=== PATIENT | female | born 1955 | race African-American/Black ===

== ENCOUNTER 2016-12-19 23:03 | Inpatient (IN) | payer OTHER ==
[~2016-12-19] VITALS: Ht 172.7 cm; Wt 106.9 kg
--- NOTE | ~2016-12-19 | EKG ---
[facility] [place] [address] ELECTROCARDIOGRAM REPORT Name: GUILLAUME NIEVES Room #: 456-P ADM IN M.R.#: [id number] Admission: 12/20/16 Attend Phys: Ronni Ye MD Discharge: Date of : 59 Report #: [id number] THIS REPORT FOR: //name// [facility] ED Test Date: 2016-12-19 Test Time: 23:21:26 Pat Name: GUILLAUME SORIA Department: Room: [facility] Gender: F Intensivist: QUINN : 1955 Requested By: Ayan Dixon Order Number: [id number] MD: Wm Ulloa Measurements Intervals [place] Rate: 104 P: 82 OR: 173 QRS: -13 QRSD: 86 T: 71 QT: 357 QTc: 470 Interpretive Statements Sinus tachycardia Biatrial enlargement RSR' in V1 or V2, right VCD Baseline wander in lead(s) V6 Compared to ECG 05/17/2016 03:49:59 No significant change was found Electronically Signed On 12-20-2016 7:25:05 CDT by Wm Ulloa [email or web address] <ELECTRONICALLY SIGNED> By: Wm Ulloa MD, [facility] 12/20/16 0725 2321 2321 Wm Ulloa MD, [facility] /EPI
--- NOTE | ~2016-12-19 | EKG ---
[place] [address] [facility] [place] [address] ELECTROCARDIOGRAM REPORT Name: GUILLAUME NIEVES Room #: 456-P ADM IN M.R.#: [id number] Admission: 12/20/16 Attend Phys: Gustavo Wakefield DO Discharge: Date of : 59 Report #: [id number] THIS REPORT FOR: //name// [facility] Test Date: 2016-12-25 Test Time: 04:35:55 Pat Name: GUILLAUME SORIA Department: Room: 456 Gender: F Die Presser: jin gonzalez RN : 1955 Requested By: Katharine Gee Order Number: [id number] MD: Wm Ulloa Measurements Intervals [place] Rate: 81 P: 78 [place]: 124 QRS: 16 QRSD: 84 T: 56 QT: 411 QTc: 477 Interpretive Statements Sinus rhythm Right atrial enlargement Compared to ECG 12/20/2016 01:14:28 No significant change was found Electronically Signed On 12-26-2016 8:32:02 CDT by Wm Ulloa [email or web address] <ELECTRONICALLY SIGNED> By: Wm Ulloa MD, [facility] 12/26/16 0832 0435 0435 Wm Ulloa MD, [facility] /EPI
--- NOTE | ~2016-12-19 | HC ---
[facility] [address] CONSULTATION Name: GUILLAUME NIEVES Room #: 456-P ADM IN M.R.#: [id number] Admission: 12/20/16 Attend Phys: Gustavo Wakefield DO Discharge: Date of : 59 Report #: [id number] THIS REPORT FOR: //name// CC: MARIBETH physician/PCP Bryon Ye DATE OF SERVICE: 12/20/2016 REASON FOR CONSULTATION: Respiratory failure. IMPRESSION: 1. Mfbib-sd-nklrpjx hypoxic respiratory failure. 2. Pulmonary infiltrates. 3. Exacerbation of asthma. PLAN: Corticosteroids, aerosol treatments, BiPAP. Considered going to unit, but stabilized. D-dimer was done. We will follow closely with you. Echo had been done earlier this year that did not show pulmonary hypertension. HISTORY OF PRESENT ILLNESS: This is a very pleasant 61-year-old female. When I saw her, was in distress. She tried to go to the restroom and required be placed on BiPAP. The patient with headache, cough, discolored sputum for 3-4 days prior to admission. ALLERGIES: PENICILLIN. HOME MEDICATIONS: Include albuterol and Breo. FAMILY HISTORY: Negative for significant pulmonary disease by report. SOCIAL HISTORY: Positive tobacco in past. Negative ETOH. No drugs of abuse. ALLERGIES: PENICILLIN with hives and rash. REVIEW OF SYSTEMS: Shortness of breath. No definite chest pain, no palpitations. Positive sputum production. PHYSICAL EXAMINATION: HEENT: Eyes negative icterus. BiPAP on. LUNGS: Wheeze bilaterally. HEART: Regular. ABDOMEN: Bowel sounds present. EXTREMITIES: Showed no calf tenderness, moved all extremities. LABORATORY DATA: [facility] [address] [place] [address] CONSULTATION Name: GUILLAUME NIEVES Room #: 456-P ADM IN M.R.#: [id number] Admission: 12/20/16 Attend Phys: Gustavo Wakefield DO Discharge: Date of : 59 Report #: [id number] D-dimer 0.3, creatinine 1.2, glucose 249. White count 12.2, hemoglobin 13.4, platelets 188. ProBNP 255, mag 2.1, pH 7.396, pCO2 of 44, pO2 of 493, carboxyhemoglobin 0.6 when she came in. <ELECTRONICALLY SIGNED> By: Cyndi Montano MD 12/22/161906 193 07 Cyndi Montano MD /nt
--- NOTE | ~2016-12-19 | EKG ---
[place] [address] [facility] [place] [address] ELECTROCARDIOGRAM REPORT Name: GUILLAUME NIEVES Room #: 456-P ADM IN M.R.#: [id number] Admission: 12/20/16 Attend Phys: Ronni Ye MD Discharge: Date of : 59 Report #: [id number] THIS REPORT FOR: //name// [facility] ED Test Date: 2016-12-20 Test Time: 01:14:28 Pat Name: GUILLAUME SORIA Department: Room: 456 Gender: F Welt Maker: QUINN : 1955 Requested By: Ronni Ye Order Number: [id number] MD: Wm Ulloa Measurements Intervals [place] Rate: 97 P: 82 [place]: 177 QRS: 12 QRSD: 90 T: 60 QT: 387 QTc: 492 Interpretive Statements Sinus rhythm Biatrial enlargement RSR' in V1 or V2, right VCD Borderline prolonged QT interval Compared to ECG 05/17/2016 03:49:59 Sinus tachycardia no longer present Electronically Signed On 12-20-2016 7:26:50 CDT by Wm Ulloa [email or web address] <ELECTRONICALLY SIGNED> By: Wm Ulloa MD, [facility] 12/20/16 0726 0114 0114 Wm Ulloa MD, [facility] /EPI
--- NOTE | ~2016-12-19 | EKG ---
[place] [address] [facility] [place] [address] ELECTROCARDIOGRAM REPORT Name: GUILLAUME NIEVES Room #: 456-P ADM IN M.R.#: [id number] Admission: 12/20/16 Attend Phys: Gustavo Wakefield DO Discharge: Date of : 59 Report #: [id number] THIS REPORT FOR: //name// [facility] Test Date: 2016-12-25 Test Time: 03:49:27 Pat Name: GUILLAUME SORIA Department: Room: 456 Gender: F Outside Sales Advertising Executive: jin gonzalez RN : 1955 Requested By: Katharine Gee Order Number: [id number] MD: Wm Ulloa Measurements Intervals [place] Rate: 90 P: 78 [place]: 127 QRS: 20 QRSD: 82 T: 57 QT: 387 QTc: 474 Interpretive Statements Sinus rhythm Right atrial enlargement Borderline ST elevation, anterior leads Compared to ECG 12/20/2016 01:14:28 No significant change was found Electronically Signed On 12-26-2016 8:31:19 CDT by Wm Ulloa [email or web address] <ELECTRONICALLY SIGNED> By: Wm Ulloa MD, [facility] 12/26/16 0831 0349 0349 Wm Ulloa MD, [facility] /EPI
[~2016-12-19 23:03] MED LIST: KEFLEX500 MG PO; NOHOMEMEDICATIONS; OSELB75 PO; PREDNISONE 10 M10 MG PO; PROAIR HFA8.5 GM INH
[2016-12-19 23:05] VITALS: BP 166/102
[2016-12-19 23:18] LABS: ABSOLUTE NEUTROPHILS 6.4 thou/uL (1.4-8.2); EOSINOPHILS 3.2 % (0.0-3.0); HEMATOCRIT 42.1 % (37.0-47.0); HEMOGLOBIN 14.2 gm/dL (12.0-15.0); LYMPHOCYTES 25.1 % (24.0-44.0); MCHC 33.8 g/dL (28.0-37.0); MCV 79.8 fL (80.0-100.0); PLATELET COUNT 191 thou/uL (150-400); POLYS 60.7 % (36.0-66.0); RBC 5.27 mil/uL (4.20-5.00); WBC 10.5 thou/uL (4.0-11.0)
[2016-12-19 23:20] LABS: MANUAL DIFF NO
[2016-12-19 23:26] LABS: CALCIUM 9.7 mg/dL (8.5-10.1); POTASSIUM 3.8 mmol/L (3.5-5.1)
[2016-12-19] MEDS ORDERED: BREO ELLIPTA 11 EACH INH (23:28)
[2016-12-19 23:55] LABS: ABG SAMPLE TYPE ARTERIAL; BE(vivo) 1.3 mmol/L (-2 to +3); HCO3 26.6 mmol/L (22.0-26.0); LACTATE 1.32 mmol/L (0.5-2.0); O2(CT) 21.1 mL/dL (15.0-23.0); O2Hb 98.4 % (92.0-98.0); PCO2 44.3 mmHg (35.0-45.0); PO2 493.2 mmHg (80.0-100.0); pH 7.396 (7.360-7.450); sO2 99.9 % (92.0-98.0); tCO2 27.9 mmol/L (24.0-30.0)
[2016-12-19 23:56] LABS: FIO2 100 %; STICK SITE L.RADIAL; TIDAL VOLUME 732 ml
[2016-12-20 01:14] VITALS: BP 139/60
[2016-12-20 02:50] LABS: MAGNESIUM 2.1 mg/dL (1.8-2.4); TROPONIN-I < 0.04 ng/mL (<0.04-0.07)
[2016-12-20 03:53] VITALS: BP 170/78
[2016-12-20 07:32] VITALS: BP 189/107
[2016-12-20 11:31] LABS: HEMATOCRIT 41.1 % (37.0-47.0); HEMOGLOBIN 13.4 gm/dL (12.0-15.0); MCH 26.2 pg (26.0-34.0); MCHC 32.6 g/dL (28.0-37.0); MCV 80.4 fL (80.0-100.0); PLATELET COUNT 188 thou/uL (150-400); RBC 5.11 mil/uL (4.20-5.00); RDW 15.2 % (10.5-14.5); WBC 12.2 thou/uL (4.0-11.0)
[2016-12-20 11:32] LABS: MANUAL DIFF YES
[2016-12-20 11:47] LABS: CALCIUM 9.5 mg/dL (8.5-10.1); CREATININE 1.2 mg/dL (0.6-1.0); POTASSIUM 3.9 mmol/L (3.5-5.1)
[2016-12-20 11:48] LABS: ABSOLUTE NEUTROPHILS 11.5 thou/uL (1.4-8.2); PLATELET ESTIMATE NORMAL; TOTAL CELL COUNT 100
[2016-12-20 11:51] LABS: PROTIME 10.5 Seconds (9.3-11.4)
[2016-12-20 11:52] LABS: ALBUMIN 3.4 g/dL (3.4-5.0); TOTAL BILIRUBIN 0.3 mg/dL (<0.1-1.0); TOTAL PROTEIN 8.3 g/dL (6.4-8.2)
[2016-12-20 19:30] VITALS: BP 160/107
[2016-12-20 20:21] VITALS: BP 162/91
[2016-12-21 05:42] VITALS: BP 166/76
[2016-12-21 19:47] VITALS: BP 171/88
[2016-12-22] VITALS (8 sets, daily range): BP systolic 156–198; BP diastolic 57–94
[2016-12-22 03:51] LABS: HEMOGLOBIN 12.7 gm/dL (12.0-15.0); MCH 26.3 pg (26.0-34.0); MCHC 32.6 g/dL (28.0-37.0); MCV 80.7 fL (80.0-100.0); PLATELET COUNT 196 thou/uL (150-400); RBC 4.83 mil/uL (4.20-5.00); RDW 15.2 % (10.5-14.5); WBC 19.8 thou/uL (4.0-11.0)
[2016-12-22 04:05] LABS: CALCIUM 9.5 mg/dL (8.5-10.1); MAGNESIUM 2.1 mg/dL (1.8-2.4); POTASSIUM 4.4 mmol/L (3.5-5.1)
[2016-12-22 04:18] LABS: MANUAL DIFF YES
[2016-12-22 05:49] LABS: ABSOLUTE NEUTROPHILS 17.8 thou/uL (1.4-8.2); ANISOCYTOSIS SLIGHT; TOTAL CELL COUNT 100
[2016-12-23 06:02] VITALS: BP 185/90
[2016-12-23 06:24] LABS: HEMATOCRIT 39.2 % (37.0-47.0); HEMOGLOBIN 12.9 gm/dL (12.0-15.0); MANUAL DIFF YES; MCH 26.3 pg (26.0-34.0); MCHC 32.9 g/dL (28.0-37.0); MCV 79.8 fL (80.0-100.0); PLATELET COUNT 198 thou/uL (150-400); RBC 4.92 mil/uL (4.20-5.00); RDW 15.1 % (10.5-14.5); WBC 17.1 thou/uL (4.0-11.0)
[2016-12-23 06:32] LABS: CALCIUM 9.3 mg/dL (8.5-10.1); CREATININE 0.9 mg/dL (0.6-1.0); POTASSIUM 4.3 mmol/L (3.5-5.1)
[2016-12-23 07:47] VITALS: BP 147/66
[2016-12-23 08:38] LABS: ABSOLUTE NEUTROPHILS 15.4 thou/uL (1.4-8.2); PLATELET ESTIMATE NORMAL; TOTAL CELL COUNT 100
[2016-12-23 11:10] VITALS: BP 185/72
[2016-12-23 15:24] VITALS: BP 176/89
[2016-12-23 19:13] VITALS: BP 176/72
[2016-12-24 04:46] VITALS: BP 188/97
[2016-12-24 05:31] LABS: ABG SAMPLE TYPE ARTERIAL; BE(vivo) 3.2 mmol/L (-2 to +3); HCO3 27.5 mmol/L (22.0-26.0); LACTATE 2.52 mmol/L (0.5-2.0); O2(CT) 19.2 mL/dL (15.0-23.0); PCO2 41.2 mmHg (35.0-45.0); PO2 62.1 mmHg (80.0-100.0); pH 7.443 (7.360-7.450); sO2 92.6 % (92.0-98.0); tCO2 28.8 mmol/L (24.0-30.0)
[2016-12-24 05:32] LABS: ABG COMMENT ROOM AIR; STICK SITE RRA
[2016-12-24 06:19] LABS: ABSOLUTE NEUTROPHILS 13.4 thou/uL (1.4-8.2); BASOPHILS 0.3 % (0.0-2.0); EOSINOPHILS 0.6 % (0.0-3.0); HEMATOCRIT 40.4 % (37.0-47.0); HEMOGLOBIN 13.5 gm/dL (12.0-15.0); LYMPHOCYTES 10.9 % (24.0-44.0); MCH 26.4 pg (26.0-34.0); MCHC 33.4 g/dL (28.0-37.0); MCV 79.2 fL (80.0-100.0); MONOCYTES 5.8 % (1.0-8.0); PLATELET COUNT 212 thou/uL (150-400); POLYS 82.4 % (36.0-66.0); RDW 14.9 % (10.5-14.5); WBC 16.3 thou/uL (4.0-11.0)
[2016-12-24 06:26] LABS: MANUAL DIFF NO
[2016-12-24 06:32] LABS: CALCIUM 9.4 mg/dL (8.5-10.1); CREATININE 1.1 mg/dL (0.6-1.0); POTASSIUM 4.1 mmol/L (3.5-5.1)
[2016-12-24 07:37] VITALS: BP 174/88
[2016-12-24 11:38] VITALS: BP 164/78
[2016-12-24 16:49] VITALS: BP 183/89
[2016-12-24 19:45] VITALS: BP 155/70
[2016-12-25] VITALS (8 sets, daily range): BP systolic 133–198; BP diastolic 59–91
[2016-12-25 04:56] LABS: HEMATOCRIT 42.6 % (37.0-47.0); HEMOGLOBIN 13.8 gm/dL (12.0-15.0); MCHC 32.5 g/dL (28.0-37.0); PLATELET COUNT 229 thou/uL (150-400); RBC 5.33 mil/uL (4.20-5.00); RDW 15.2 % (10.5-14.5); WBC 13.4 thou/uL (4.0-11.0)
[2016-12-25 05:00] LABS: MANUAL DIFF YES
[2016-12-25 05:06] LABS: CALCIUM 9.5 mg/dL (8.5-10.1); POTASSIUM 4.2 mmol/L (3.5-5.1)
[2016-12-25 06:44] LABS: ABSOLUTE NEUTROPHILS 9.2 thou/uL (1.4-8.2); ANISOCYTOSIS 1+; METAMYELOCYTES 3 %; POLYCHROMASIA OCCASIONAL; TOTAL CELL COUNT 100
[2016-12-26 04:55] VITALS: BP 171/83
[2016-12-26 06:53] LABS: HEMATOCRIT 45.1 % (37.0-47.0); HEMOGLOBIN 14.6 gm/dL (12.0-15.0); MCH 25.9 pg (26.0-34.0); MCHC 32.4 g/dL (28.0-37.0); PLATELET COUNT 229 thou/uL (150-400); RBC 5.64 mil/uL (4.20-5.00); RDW 15.2 % (10.5-14.5); WBC 14.1 thou/uL (4.0-11.0)
[2016-12-26 06:54] LABS: CALCIUM 9.6 mg/dL (8.5-10.1); CREATININE 1.1 mg/dL (0.6-1.0); MANUAL DIFF YES; POTASSIUM 4.2 mmol/L (3.5-5.1)
[2016-12-26 07:51] LABS: ABSOLUTE NEUTROPHILS 11.3 thou/uL (1.4-8.2); METAMYELOCYTES 2 %; MYELOCYTES 1 %; TOTAL CELL COUNT 100
[2016-12-26 07:52] LABS: ANISOCYTOSIS SLIGHT
[2016-12-26 08:32] VITALS: BP 162/82
[2016-12-26] MEDS ORDERED: LEVAQUIN 500 M500 M1 PO (15:30)
[2016-12-26] MEDS ORDERED: AMLODIPINE BESY10 MG PO (15:30)
[2016-12-26] MEDS ORDERED: MEDROL DOSPAK21 TA1 PO (15:31)
[2016-12-26 16:05] VITALS: BP 137/76
[2016-12-26 16:06] VITALS: BP 162/82
== END 2016-12-26 17:14 | disposition home or self-care (01) | DRG 189 ==
LOC: ER 23:03 → EROBS 12-20 00:17 → 4W 12-20 00:17 → EROBS 12-20 00:17 → 4W 12-20 01:18
PROVIDERS: Emergency Medicine; Family Medicine; Internal Medicine Pulmonary Disease; Nurse Practitioner; Nurse Practitioner Acute Care
PROC: 5A09457 Assistance with Respiratory Ventilation, 24-96 Consecutive Hours, Continuous Positive Airway Pressure (ICD-10-PCS; principal; 2016-12-21)
DX: J96.21 Acute and chronic respiratory failure with hypoxia (principal); J45.901 Unspecified asthma with (acute) exacerbation; N17.9 Acute kidney failure, unspecified; J20.8 Acute bronchitis due to other specified organisms; G47.33 Obstructive sleep apnea (adult) (pediatric); R73.9 Hyperglycemia, unspecified; J32.9 Chronic sinusitis, unspecified; D72.829 Elevated white blood cell count, unspecified; T38.0X5A Adverse effect of glucocorticoids and synthetic analogues, initial encounter; E66.3 Overweight; F17.210 Nicotine dependence, cigarettes, uncomplicated; Z68.35 Body mass index [BMI] 35.0-35.9, adult; Y92.89 Other specified places as the place of occurrence of the external cause; Z88.0 Allergy status to penicillin
CPT/HCPCS: 10045

== ENCOUNTER 2017-03-31 15:27 | Inpatient (IN) | payer OTHER ==
[~2017-03-31] VITALS: Ht 180.3 cm; Wt 98.4 kg
--- NOTE | ~2017-03-31 | EKG ---
[place] [address] [facility] [address] ELECTROCARDIOGRAM REPORT Name: GUILLAUME NIEVES Room #: 247-P ADM IN M.R.#: [id number] Admission: 03/31/17 Attend Phys: Bryan Rowe MD Discharge: Date of : 59 Report #: [id number] THIS REPORT FOR: //name// [facility] ED Test Date: 2017-03-31 Test Time: 15:38:10 Pat Name: GUILLAUME SORIA Department: Room: [facility] Gender: F Proofer: ALYSHA : 1955 Requested By: Ezekiel Navarro Order Number: [id number] MD: Wm Ulloa Measurements Intervals [place] Rate: 109 P: 77 [place]: 159 QRS: 11 QRSD: 83 T: 63 QT: 365 QTc: 492 Interpretive Statements Sinus tachycardia Right atrial abnormality Borderline prolonged QT interval Compared to ECG 12/25/2016 04:35:55 Heart rate has increased Electronically Signed On 04-02-2017 14:02:06 RN OUTPATIENT SURGERY by Wm Ulloa [email or web address] <ELECTRONICALLY SIGNED> By: Wm Ulloa MD, [facility] 04/02/17 1402 1538 1538 Wm Ulloa MD, [facility] /EPI
--- NOTE | ~2017-03-31 | EKG ---
[place] [address] [address] [facility] [place] [address] ELECTROCARDIOGRAM REPORT Name: GUILLAUME NIEVES Room #: 212- ADM IN M.R.#: [id number] Admission: 03/31/17 Attend Phys: Bryan Rowe MD Discharge: Date of : 59 Report #: [id number] THIS REPORT FOR: //name// [facility] Test Date: 2017-04-04 Test Time: 15:43:04 Pat Name: GUILLAUME SORIA Department: Room: 212 P Gender: F Clinic Coordinator: Crow DELGADILLO : 1955 Requested By: Ignacio Gonzalez Order Number: [id number] MD: Michael Guevara Measurements Intervals [place] Rate: 106 P: 82 [place]: 166 QRS: 12 QRSD: 82 T: 54 QT: 371 QTc: 493 Interpretive Statements Sinus tachycardia Biatrial enlargement Probable left ventricular hypertrophy Borderline prolonged QT interval Compared to ECG 03/31/2017 15:38:10 No significant changes Electronically Signed On 04-04-2017 20:46:52 JAVA SQL DEVELOPER by Michael Guevara [email or web address] <ELECTRONICALLY SIGNED> By: Michael Guevara MD 04/04/17 2046 1543 1543 Michael Guevara MD /EPI
--- NOTE | ~2017-03-31 | HC ---
[facility] [place] [address] [address] [place] [address] CONSULTATION Name: GUILLAUME NIEVES Room #: 212-P [facility] IN M.R.#: [id number] Admission: 03/31/17 Attend Phys: Bryan Rowe MD Discharge: 04/05/17 Date of : 59 Report #: [id number] THIS REPORT FOR: //name// CC: Bryan Cheung DATE OF SERVICE: 03/31/2017 PULMONARY CONSULTATION REFERRING PROVIDER: Bryan Rowe MD No primary care provider ____. REASON FOR CONSULTATION: Status asthmaticus. CHIEF COMPLAINT: Shortness of breath. HISTORY OF PRESENT ILLNESS: Our group was asked to evaluate the patient in consultation while hospitalized at [facility] [place], well known to me from prior hospital stays and office visits. This is a very pleasant 61-year-old woman with very severe persistent asthma that has been difficult to control due to inability to obtain medications at home due to lack of insurance, had been trying to keep on long-acting beta agonist and inhaled steroids in the past, but often runs out of medications and uses only p.r.n. albuterol, recently exposed to grandchildren that were sick, has been having some cough over the last 4 days with green sputum, running fevers high as 102 at home. She states with some chills, dyspnea became more and more severe throughout the week until today. Finally, presented to the Emergency Department in severe respiratory distress, was placed on noninvasive positive pressure ventilation with BiPAP and given systemic steroids and antibiotics. Notes more comfortable on the BiPAP, still having some chest tightness and shortness of breath, currently is in moderate respiratory distress despite use of BiPAP. ALLERGIES: INCLUDE PENICILLIN. PAST MEDICAL HISTORY: 1. Severe persistent asthma. 2. Ongoing tobacco use. 3. Obesity. HOME MEDICATIONS: Albuterol inhaler p.r.n. SOCIAL HISTORY: Active smoker. No significant alcohol consumption. Lives with , but states she not does get out of her home very much due to concerns [facility] [place] [address] [place] [address] CONSULTATION Name: GUILLAUME NIEVES Room #: [address] [place] [address] [place] ..#: [id number] Admission: 03/31/17 Attend Phys: Bryan Rowe MD Discharge: 04/05/17 Date of : 59 Report #: [id number] about her dyspnea. FAMILY HISTORY: Negative for any significant pulmonary disease. REVIEW OF SYSTEMS: CONSTITUTIONAL: Fever and chills as described. ENT: No upper respiratory congestion, rhinorrhea or dysphagia. CARDIOVASCULAR: She has some chest tightness, but no chest pain or palpitation otherwise. GASTROINTESTINAL: No nausea, vomiting, diarrhea, constipation or abdominal pain. GENITOURINARY: No dysuria, no frequency, hematuria. INTEGUMENT: Denies any rash. MUSCULOSKELETAL: No joint pain, swelling, or cramping. NEUROLOGIC: Denies any new focal complaints. PHYSICAL EXAMINATION: VITAL SIGNS: Afebrile, pulse 120s and regular, respiratory rate 20, blood pressure 189/81, oxygen saturation ____ on BiPAP 16/6 and FiO2 of 35%. GENERAL: This is an obese, middle-aged black female, in moderate respiratory distress. LUNGS: With diffuse expiratory wheezes noted throughout, diminished air movement. CARDIOVASCULAR: Heart tachycardic, but regular. No murmurs. ABDOMEN: Obese, soft, nontender, no mass, no hepatosplenomegaly. EXTREMITIES: Warm, 2+ pulses, no edema. INTEGUMENT: Without rash. LABORATORY DATA: Sodium 140, potassium 3.6, chloride 103, bicarbonate 29, BUN 11, creatinine 1.0, glucose 109. White blood cell count of 10,000, hemoglobin 14, hematocrit 42, platelet count of 161. Chest x-ray was relatively clear. Arterial blood gas done on BiPAP settings as described revealed pH 7.37, pCO2 of 41, pO2 of 86, bicarbonate 23, lactate 2.3. No cultures sent and no respiratory viral panel or influenza screen sent. IMPRESSION: 1. Acute exacerbation of asthma, likely due to respiratory infection, certainly concerning for acute bronchitis and/or influenza. 2. Acute hypoxemic respiratory failure. 3. Ongoing tobacco use. SUGGESTIONS: 1. High dose systemic steroid with taper. 2. Check nasal swab for respiratory viral panel and rapid influenza screen. 3. Sputum and blood cultures. 4. Levaquin. [address] [address] CONSULTATION Name: GUILLAUME NIEVES Room #: 212-P DIS IN M.R.#: [id number] Admission: 03/31/17 Attend Phys: Bryan Rowe MD Discharge: 04/05/17 Date of : 59 Report #: [id number] 5. Frequent bronchodilators. 6. ICU care. 7. Continue with noninvasive positive pressure ventilation. 8. Case management to assist with insurance filing if able and to ensure the patient obtains adequate medications to control her symptoms and disease. 9. Additional recommendations to follow. We will follow along with you. Total critical care time 40 minutes, not including procedures. Discussed with the patient at bedside as well as nursing. <ELECTRONICALLY SIGNED> By: Bryon Cheung MD 04/07/17 1726 1856 0611 Bryon Cheung MD /nt
[~2017-03-31 15:27] MED LIST changes: +AMLODIPINE BESY10 MG PO; +BREO ELLIPTA 11 EACH INH; +LEVAQUIN 500 M500 M1 PO; +MEDROL DOSPAK21 TA1 PO
[2017-03-31 15:31] VITALS: BP 153/111
[2017-03-31 16:21] LABS: ABSOLUTE NEUTROPHILS 6.1 thou/uL (1.4-8.2); BASOPHILS 0.8 % (0.0-2.0); EOSINOPHILS 2.9 % (0.0-3.0); HEMATOCRIT 41.8 % (37.0-47.0); HEMOGLOBIN 13.9 gm/dL (12.0-15.0); LYMPHOCYTES 28.1 % (24.0-44.0); MCH 26.3 pg (26.0-34.0); MCHC 33.2 g/dL (28.0-37.0); MCV 79.1 fL (80.0-100.0); MONOCYTES 9.7 % (1.0-8.0); PLATELET COUNT 161 thou/uL (150-400); POLYS 58.5 % (36.0-66.0); RBC 5.29 mil/uL (4.20-5.00); RDW 15.1 % (10.5-14.5); WBC 10.4 thou/uL (4.0-11.0)
[2017-03-31 16:27] LABS: HCO3 24.2 mmol/L (22.0-26.0); PCO2 42.1 mmHg (35.0-45.0); PO2 117.1 mmHg (80.0-100.0); pH 7.377 (7.360-7.450); sO2 98.2 % (92.0-98.0)
[2017-03-31 16:28] LABS: ANION GAP 8 mmol/L (7-16); BUN 11 mg/dL (7-18); CALCIUM 9.9 mg/dL (8.5-10.1); CHLORIDE 103 mmol/L (98-107); CO2 29 mmol/L (21-32); GLUCOSE 109 mg/dL (74-106); POTASSIUM 3.6 mmol/L (3.5-5.1); SODIUM 140 mmol/L (136-145)
[2017-03-31 16:37] LABS: TROPONIN-I < 0.04 ng/mL (<0.06)
[2017-03-31 17:49] LABS: BE(vivo) -1.9 mmol/L (-2 to +3); HCO3 23.1 mmol/L (22.0-26.0); PCO2 40.5 mmHg (35.0-45.0); pH 7.374 (7.360-7.450); sO2 96.3 % (92.0-98.0)
[2017-03-31 23:00] VITALS: BP 161/67
[2017-04-01] VITALS (30 sets, daily range): BP systolic 99–209; BP diastolic 61–126
[2017-04-01 04:56] LABS: ABSOLUTE NEUTROPHILS 8.3 thou/uL (1.4-8.2); BASOPHILS 0.3 % (0.0-2.0); HEMATOCRIT 38.7 % (37.0-47.0); HEMOGLOBIN 12.6 gm/dL (12.0-15.0); LYMPHOCYTES 10.9 % (24.0-44.0); MCH 26.2 pg (26.0-34.0); MCHC 32.7 g/dL (28.0-37.0); MONOCYTES 1.8 % (1.0-8.0); PLATELET COUNT 169 thou/uL (150-400); RBC 4.83 mil/uL (4.20-5.00); RDW 15.6 % (10.5-14.5); WBC 9.6 thou/uL (4.0-11.0)
[2017-04-01 05:02] LABS: POTASSIUM 3.7 mmol/L (3.5-5.1)
[2017-04-01 05:08] LABS: BE(vivo) -3.3 mmol/L (-2 to +3); HCO3 21.7 mmol/L (22.0-26.0); PO2 67.4 mmHg (80.0-100.0); pH 7.363 (7.360-7.450); sO2 92.9 % (92.0-98.0)
[2017-04-02] VITALS (27 sets, daily range): BP systolic 143–210; BP diastolic 62–100
[2017-04-02 05:03] LABS: HEMATOCRIT 37.7 % (37.0-47.0); HEMOGLOBIN 12.1 gm/dL (12.0-15.0); MCH 25.7 pg (26.0-34.0); MCHC 32.1 g/dL (28.0-37.0); PLATELET COUNT 181 thou/uL (150-400); RBC 4.72 mil/uL (4.20-5.00); RDW 15.7 % (10.5-14.5); WBC 21.5 thou/uL (4.0-11.0)
[2017-04-02 05:11] LABS: CALCIUM 9.5 mg/dL (8.5-10.1); CREATININE 0.9 mg/dL (0.6-1.0); POTASSIUM 4.2 mmol/L (3.5-5.1)
[2017-04-02 11:16] LABS: ABSOLUTE NEUTROPHILS 19.8 thou/uL (1.4-8.2); ANISOCYTOSIS 1+
[2017-04-03] VITALS (18 sets, daily range): BP systolic 150–195; BP diastolic 75–111
[2017-04-03 03:51] LABS: CALCIUM 9.1 mg/dL (8.5-10.1); POTASSIUM 4.1 mmol/L (3.5-5.1)
[2017-04-03 03:53] LABS: HEMATOCRIT 37.7 % (37.0-47.0); HEMOGLOBIN 12.4 gm/dL (12.0-15.0); MCH 26.1 pg (26.0-34.0); MCHC 32.9 g/dL (28.0-37.0); MCV 79.4 fL (80.0-100.0); PLATELET COUNT 200 thou/uL (150-400); RBC 4.76 mil/uL (4.20-5.00); RDW 16.2 % (10.5-14.5); WBC 22.7 thou/uL (4.0-11.0)
[2017-04-03 05:41] LABS: ABSOLUTE NEUTROPHILS 19.5 thou/uL (1.4-8.2)
[2017-04-03 05:42] LABS: ANISOCYTOSIS 1+
[2017-04-03 05:43] LABS: LARGE PLATELETS OCCASIONAL; POLYCHROMASIA OCCASIONAL
[2017-04-04] VITALS (7 sets, daily range): BP systolic 160–186; BP diastolic 75–93
[2017-04-04 04:16] LABS: HEMATOCRIT 40.4 % (37.0-47.0); MCH 25.7 pg (26.0-34.0); MCHC 32.1 g/dL (28.0-37.0); MCV 79.9 fL (80.0-100.0); PLATELET COUNT 218 thou/uL (150-400); RBC 5.06 mil/uL (4.20-5.00); RDW 15.6 % (10.5-14.5); WBC 20.5 thou/uL (4.0-11.0)
[2017-04-04 04:20] LABS: CALCIUM 9.3 mg/dL (8.5-10.1); CREATININE 1.2 mg/dL (0.6-1.0); POTASSIUM 4.1 mmol/L (3.5-5.1)
[2017-04-04 08:06] LABS: ABSOLUTE NEUTROPHILS 15.8 thou/uL (1.4-8.2); METAMYELOCYTES 1 %
[2017-04-04 08:07] LABS: POLYCHROMASIA SLIGHT
[2017-04-04] MEDS ORDERED: LEVAQUIN 750 M750 MG PO (14:33)
[2017-04-04] MEDS ORDERED: PREDNISONE 10 M10 MG PO (14:35)
[2017-04-04] MEDS ORDERED: NORVASC10 MG PO (14:36)
[2017-04-04] MEDS ORDERED: DUONEB 2.5-0.5 M3 ML INH (14:36)
[2017-04-04] MEDS ORDERED: PROTONIX40 M1 PO (14:37)
[2017-04-04] MEDS ORDERED: PULMICORT0.5 MG/21 INH (14:37)
[2017-04-04 23:06] LABS: ADENOVIRUS Negative (Negative); INFLUENZA A Negative (Negative); INFLUENZA B Negative (Negative); METAPNEUMOVIRUS Negative (Negative); PARAINFLUENZA 1 Negative (Negative); PARAINFLUENZA 2 Negative (Negative); PARAINFLUENZA 3 Negative (Negative); RHINOVIRUS Negative (Negative); RSV A Negative (Negative); RSV B Negative (Negative)
[2017-04-05 00:05] VITALS: BP 169/84
[2017-04-05 04:45] VITALS: BP 160/82
[2017-04-05 08:00] VITALS: BP 164/89
[2017-04-05] MEDS ORDERED: LISINOPRIL10 MG PO (09:38)
[2017-04-05 09:51] VITALS: BP 164/89
== END 2017-04-05 11:45 | disposition home or self-care (01) | DRG 189 ==
LOC: ER 15:27 → EROBS 17:10 → ICU 18:30 → 2N 04-03 13:42 → ENTRNSPT 04-05 11:32 → EDTRNSPTSTS 04-05 11:36 → 2N 04-05 11:45
PROVIDERS: Internal Medicine Endocrinology, Diabetes & Metabolism; Internal Medicine Pulmonary Disease; Nurse Practitioner
PROC: 5A09357 Assistance with Respiratory Ventilation, Less than 24 Consecutive Hours, Continuous Positive Airway Pressure (ICD-10-PCS; principal; 2017-03-31)
PROC: 5A09357 Assistance with Respiratory Ventilation, Less than 24 Consecutive Hours, Continuous Positive Airway Pressure (ICD-10-PCS; 2017-04-01)
PROC: 5A09357 Assistance with Respiratory Ventilation, Less than 24 Consecutive Hours, Continuous Positive Airway Pressure (ICD-10-PCS; 2017-04-02)
PROC: 5A09357 Assistance with Respiratory Ventilation, Less than 24 Consecutive Hours, Continuous Positive Airway Pressure (ICD-10-PCS; 2017-04-03)
PROC: 5A09357 Assistance with Respiratory Ventilation, Less than 24 Consecutive Hours, Continuous Positive Airway Pressure (ICD-10-PCS; 2017-04-04)
PROC: 5A09357 Assistance with Respiratory Ventilation, Less than 24 Consecutive Hours, Continuous Positive Airway Pressure (ICD-10-PCS; 2017-04-05)
DX: J96.01 Acute respiratory failure with hypoxia (principal); J45.901 Unspecified asthma with (acute) exacerbation; J45.902 Unspecified asthma with status asthmaticus; F17.210 Nicotine dependence, cigarettes, uncomplicated; E66.9 Obesity, unspecified; J44.9 Chronic obstructive pulmonary disease, unspecified; Z88.0 Allergy status to penicillin; Z71.6 Tobacco abuse counseling; Z79.899 Other long term (current) drug therapy; Z68.30 Body mass index [BMI] 30.0-30.9, adult
CPT/HCPCS: 10078; 10081

== ENCOUNTER → 2017-07-17 | Outpatient (CLI) | payer OTHER ==
[~2017-07-17] MED LIST changes: +DUONEB 2.5-0.5 M3 ML INH; +LEVAQUIN 750 M750 MG PO; +LISINOPRIL10 MG PO; +NORVASC10 MG PO; +PROTONIX40 M1 PO; +PULMICORT0.5 MG/21 INH
== END ==
LOC: RAD 10:45
DX: M17.12 Unilateral primary osteoarthritis, left knee (principal); M25.762 Osteophyte, left knee; G89.29 Other chronic pain

== ENCOUNTER → 2018-06-27 | Outpatient (CLI) | payer OTHER | LOC: RAD 10:50 | DX: R04.2 Hemoptysis (principal); I10 Essential (primary) hypertension; Z88.0 Allergy status to penicillin ==

== ENCOUNTER → 2019-01-10 | Outpatient (CLI) | payer OTHER ==
[~2019-01-10] MED LIST changes: +MOBIC15 MG PO
== END ==
LOC: RAD 14:10 → ULTRA 14:10
DX: J45.50 Severe persistent asthma, uncomplicated (principal); J98.4 Other disorders of lung; J98.11 Atelectasis; N63.10 Unspecified lump in the right breast, unspecified quadrant; N63.20 Unspecified lump in the left breast, unspecified quadrant; I10 Essential (primary) hypertension; Z88.8 Allergy status to other drugs, medicaments and biological substances; Z88.0 Allergy status to penicillin

== ENCOUNTER 2019-01-24 20:02 | Emergency (ER) | payer OTHER ==
[~2019-01-24] VITALS: Ht 175.3 cm; Wt 124.7 kg
[~2019-01-24 20:02] MED LIST changes: -MOBIC15 MG PO
[2019-01-24 20:47] LABS: URINE BILIRUBIN NEGATIVE (Negative); URINE BLOOD 1+ (Negative); URINE CLARITY CLEAR; URINE COLOR YELLOW; URINE GLUCOSE-RANDOM* NEGATIVE (Negative); URINE KETONES NEGATIVE (Negative); URINE LEUKOCYTES-REFLEX NEGATIVE (Negative); URINE NITRITE-REFLEX NEGATIVE (Negative); URINE PROTEIN (DIPSTICK) NEGATIVE (Negative); URINE SPECIFIC GRAVITY 1.015 (1.005-1.035)
[2019-01-24 20:57] LABS: ABSOLUTE NEUTROPHILS 9.8 thou/uL (1.4-8.2); BASOPHILS 0.5 % (0.0-2.0); EOSINOPHILS 0.7 % (0.0-3.0); HEMATOCRIT 42.4 % (37.0-47.0); HEMOGLOBIN 13.8 gm/dL (12.0-15.0); LYMPHOCYTES 17.3 % (24.0-44.0); MCH 26.4 pg (26.0-34.0); MCHC 32.4 g/dL (28.0-37.0); MCV 81.4 fL (80.0-100.0); MONOCYTES 6.1 % (1.0-8.0); PLATELET COUNT 189 thou/uL (150-400); POLYS 75.4 % (36.0-66.0); RBC 5.21 mil/uL (4.20-5.00); RDW 15.4 % (10.5-14.5)
[2019-01-24 21:04] LABS: URINE RBC 3-10 Few /HPF (0-2)
[2019-01-24 21:05] LABS: BACTERIA-REFLEX 1-9 Few /HPF (None Seen); CASTS None Seen /LPF (None Seen); CRYSTALS None Seen /LPF (None Seen); SQUAMOUS 0-3 Few /LPF (0-3); URINE WBC-REFLEX None Seen /HPF (0-5)
[2019-01-24 21:05] LABS: ANION GAP 7 mmol/L (7-16); BUN 22 mg/dL (7-18); CALCIUM 9.3 mg/dL (8.5-10.1); CHLORIDE 103 mmol/L (98-107); CO2 26 mmol/L (21-32); CREATININE 1.1 mg/dL (0.6-1.0); GLUCOSE 111 mg/dL (74-106); POTASSIUM 4.6 mmol/L (3.5-5.1); SODIUM 136 mmol/L (136-145)
[2019-01-24 21:23] LABS: ALBUMIN 3.4 g/dL (3.4-5.0); DIRECT BILIRUBIN < 0.1 mg/dL (<0.1-0.3); SGOT 12 U/L (15-37); SGPT 23 U/L (30-65); TOTAL BILIRUBIN 0.2 mg/dL (<0.1-1.0); TOTAL PROTEIN 7.9 g/dL (6.4-8.2); TROPONIN-I <0.06 ng/mL (<0.06)
[2019-01-24] MEDS ORDERED: MOBIC15 MG PO ×2 (22:06→22:11)
[2019-01-24 22:19] VITALS: BP 155/62
--- NOTE | 2019-01-25 08:47 | EKG ---
[place] [address] [facility] [place] [address] ELECTROCARDIOGRAM REPORT Name: GUILLAUME NIEVES [id number] Admission: 01/24/19 Attend Phys: Discharge: 01/24/19 Date of : 59 Report #: [id number] THIS REPORT FOR: //name// [facility] ED Test Date: 2019-01-24 Test Time: 20:13:55 Pat Name: GUILLAUME SORIA Department: Room: Gender: F Coder: RUTHIE : 1955 Requested By: Honey Coleman Order Number: [id number] MD: Wm Ulloa Measurements Intervals [place] Rate: 96 P: 75 [place]: 144 QRS: 18 QRSD: 96 T: 69 QT: 353 QTc: 447 Interpretive Statements Sinus rhythm Biatrial enlargement RSR' in V1 or V2, probably normal variant Baseline wander in lead(s) V1,V2 Compared to ECG 04/04/2017 15:43:04 No significant change was found Electronically Signed On 01-25-2019 8:47:22 CDT by Wm Ulloa [email or web address] <ELECTRONICALLY SIGNED> By: Wm Ulloa MD, [facility] 01/25/19 0847 12 12 Wm Ulloa MD, [facility] /EPI
== END 2019-01-24 22:19 | disposition home or self-care (01) ==
LOC: ER 20:02
PROVIDERS: Emergency Medicine
DX: R53.1 Weakness (principal); J45.909 Unspecified asthma, uncomplicated; I10 Essential (primary) hypertension; F17.210 Nicotine dependence, cigarettes, uncomplicated; Z88.0 Allergy status to penicillin; Z88.8 Allergy status to other drugs, medicaments and biological substances; Z90.710 Acquired absence of both cervix and uterus

== ENCOUNTER → 2019-09-25 | Outpatient (CLI) | payer OTHER ==
[~2019-09-25] MED LIST changes: +MOBIC15 MG PO
== END ==
LOC: BC 08:14
PROVIDERS: ATTEND Family Medicine
DX: N63.10 Unspecified lump in the right breast, unspecified quadrant (principal); N63.20 Unspecified lump in the left breast, unspecified quadrant; N63.0 Unspecified lump in unspecified breast